=== PATIENT | male | born 1995 | race Caucasian/White ===

== ENCOUNTER → 2019-06-05 | Outpatient (CLI) | payer SELFPAY ==
[2019-06-05 08:31] LABS: COLLECTION METHOD DRY COLLECTION; SPECIMEN CONTAINER POLYPROPYLENE CUP; SPERM MORPHOLOGY SENT TO REFERENC LAB
[2019-06-05 10:37] LABS: COLLECTION SITE ON-SITE; DAYS ABSTINENT 3 DAYS (2-7); ROUND CELL CONC. 3.1 X10^6/mL (<5.1); SA DILUTION CNT 1 386; SA DILUTION CNT 2 408; SA DILUTION FACTOR 3; SA NONMOTILE CONCENTRATION 18.7 X10^6/mL; SA NONMOTILE COUNT1 193; SA NONMOTILE COUNT2 180; SA ROUND CELL COUNT1 27; SA ROUND CELL COUNT2 34; SA SPERM MOTILE CONC 100.4 X10^6mL; SEMEN TESTING TIME 845; SPERM CONCENTRATION 119.1 X10^6/mL (>12.0); TOTAL SPERM COUNT 154.8 X10^6 (>33.0)
[2019-06-05 10:38] LABS: SPERM PROGRESSION 4
== END ==
LOC: LAB 08:09
PROVIDERS: ATTEND Student in an Organized Health Care Education/Training Program
DX: Z31.41 Encounter for fertility testing (principal)
CPT/HCPCS: 89320